=== PATIENT | female | born 1995 | race Caucasian/White ===

== ENCOUNTER 2020-06-29 23:26 | Emergency (ER) | payer OTHER ==
[~2020-06-29 23:26] MED LIST: BENADRYL25 MG PO; LODINE CAP 300300 MG PO; MACROBID 100 M100 MG PO; OMEPRAZOLE20 M1 PO; ONDANSETRON ODT4 MG PO; PREDNISONE20 MG PO; PROTONIX40 MG PO; TAMIFLU75 MG PO; ZOFRAN ODT 4 MG4 MG PO; ZOFRAN ODT 4 MG4 MG SL; ZOFRAN4 MG PO
== END 2020-06-30 01:40 | disposition home or self-care (01) ==
LOC: ER1 23:26
DX: R06.02 Shortness of breath (principal); J45.909 Unspecified asthma, uncomplicated; Z88.0 Allergy status to penicillin; Z20.822 Contact with and (suspected) exposure to COVID-19
CPT/HCPCS: 99284; U0003

== ENCOUNTER 2021-01-07 19:04 | Emergency (ER) | payer OTHER ==
[2021-01-07 21:06] LABS: HEMOGLOBIN 14.4 gm/dl (12.3-15.3); RED BLOOD COUNT 4.61 M/UL (4.00-5.10); WHITE BLOOD COUNT 8.7 K/UL (4.5-11.0)
[2021-01-07 21:23] LABS: BUN/CREATININE RATIO 15 (0-10)
[2021-01-07] MEDS ORDERED: CLINDAMYCIN HC150 MG PO (23:13)
[2021-01-07] MEDS ORDERED: IBU400 MG PO (23:13)
== END 2021-01-07 23:29 | disposition home or self-care (01) ==
LOC: ER1 19:04
PROVIDERS: Physician Assistant Medical
DX: L02.413 Cutaneous abscess of right upper limb (principal); N94.89 Other specified conditions associated with female genital organs and menstrual cycle; R73.9 Hyperglycemia, unspecified; Z88.0 Allergy status to penicillin
CPT/HCPCS: 80053; 83605; 84703; 85025; 85652; 86140; 87040; 96374; 96375; 99283; J1885; J2405

== ENCOUNTER 2022-02-27 19:18 | Emergency (ER) | payer OTHER ==
[~2022-02-27 19:18] MED LIST changes: +CLINDAMYCIN HC150 MG PO; +IBU400 MG PO
[2022-02-27 20:21] LABS: HEMOGLOBIN 13.1 gm/dl (12.3-15.3); RED BLOOD COUNT 4.46 M/UL (4.00-5.10); WHITE BLOOD COUNT 8.9 K/UL (4.5-11.0)
[2022-02-27 20:43] LABS: BUN/CREATININE RATIO 15 (0-10)
[2022-02-27] MEDS ORDERED: CLINDAMYCIN HC300 MG PO (23:42)
== END 2022-02-27 23:45 | disposition left against medical advice (07) ==
LOC: ER1 19:18
PROVIDERS: Emergency Medicine
DX: L02.413 Cutaneous abscess of right upper limb (principal); L03.113 Cellulitis of right upper limb
CPT/HCPCS: 10060; 73201; 80053; 84703; 85025; 86140; 87040; 96374; 96375; 99283; J1885; J3370; J7030; J7070; Q9967